=== PATIENT | female | born 1965 | race Two or more races ===

== ENCOUNTER 2017-01-21 16:04 | Emergency (ER) | payer MEDICAID, OTHER ==
[~2017-01-21] VITALS: Ht 160 cm; Wt 56.7 kg
[2017-01-21 16:15] VITALS: BP 122/71
[2017-01-21] MEDS ORDERED: KEFLEX500 MG ORAL (16:54)
[2017-01-21] MEDS ORDERED: ACETAMINOPHEN-1 EAC1 ORAL (16:55)
[2017-01-21] MEDS: Tylenol #3 tab (300mg/30mg) ORAL ONE ×2 (16:59→17:00)
[2017-01-21 17:06] VITALS: BP 116/67
--- NOTE | 2017-01-21 17:14 | Emergency Room Report ---
History of Present Illness General Chief Complaint: Skin Rash/Abscess Source: Patient, Family Member Present Illness HPI [id number] walk-in with rash to lateral aspect of right breast. Daughter "pushed pus out" last night. Denies fever/chills, history of abscess, DM. Denies trauma to area. Last mammogram last year. Allergies: Coded Allergies: No Known Allergies (Unverified , 01/21/17) Patient History Past Medical History: none Past Surgical History: none Pertinent Family History: none Social History: Denies: alcohol use, drug use, smoking Last Menstrual Period: n/a Now: No : 3 Para: 3 Immunizations: UTD Reviewed Nursing Documentation: PMH: Agreed, PSxH: Agreed Nursing Documentation-PMH Past Medical History: No Stated History Review of Systems All Other Systems: negative except mentioned in HPI Physical Exam Vital Signs Date Time Temp Pulse Resp B/P Pulse Ox O2 Delivery O2 Flow Rate FiO2 01/21/17 16:13 98.1 73 14 116/69 98 Room Air Sp02 EP Interpretation: reviewed, normal General Appearance: normal inspection, well appearing, no apparent distress, alert, GCS 15, non-toxic Head: atraumatic Eyes: bilateral eye EOMI, bilateral eye PERRL ENT: normal ENT inspection, hearing grossly normal, normal voice Neck: normal inspection, full range of motion, supple, no bony tend Respiratory: normal inspection, lungs clear, normal breath sounds, no respiratory distress, no retraction, no wheezing Gastrointestinal: normal inspection, normal bowel sounds, non tender, soft, no guarding, no hernia Genitourinary: no CVA tenderness Musculoskeletal: normal inspection, back normal, normal range of motion, Naty' s Sign negative Neurologic: normal inspection, alert, oriented x3, responsive, mooner III-XII nml as tested, motor strength/tone normal, speech normal Psychiatric: normal inspection, judgement/insight normal, mood/affect normal Skin: other - Right chest wall: outer aspect of right breast. 4cm circular area of erythema without fluctuance. No active pus drainage. Warm to touch. Mild ttp Medical Decision Making Diagnostic Impression: Primary Impression: Cellulitis Qualified Codes: L03.313 - Cellulitis of chest wall ER Course Cellulitis to outer right breast No fluctuance to suggest abscess Was drained at home by patient last night No fever/chills or systemic symptoms Rx keflex, warm compress, analgesia PMD followup Advised Mammogram when completely healed. Last Vital Signs Date Time Temp Pulse Resp B/P Pulse Ox O2 Delivery O2 Flow Rate FiO2 01/21/17 17:06 64 17 116/67 100 Room Air 01/21/17 16:13 98.1 Status: improved Disposition: HOME, SELF-CARE Condition: Improved Scripts Acetaminophen With Codeine (T#3) (TYLENOL #3 TAB*) Y Tab 1 TAB ORAL BID Y for For Pain, #20 TAB Prov: NASEEM RAZA M.D. 01/21/17 Cephalexin* (KEFLEX*) 500 Mg Capsule 500 MG ORAL Q6H for 7 Days, #28 CAP 0 Refills Prov: NASEEM RAZA M.D. 01/21/17 Patient Instructions: Cellulitis, [id number] Additional Instructions: - Take ALL antibiotics until finished - Apply warm compress to area 4x a day - Take tylenol with codeine as needed for pain _ get a Mammogram of breasts when fully healed - Return to ER for worsening rash/size despite antibiotics NASEEM RAZA M.D. January 21, 2017 17:14
== END 2017-01-21 17:08 | disposition home or self-care (01) ==
LOC: EMR 17:01
DX: L03.313 Cellulitis of chest wall (principal)
CPT/HCPCS: 99284